=== PATIENT | male | born 1960 | race Caucasian/White ===

== ENCOUNTER 2022-05-12 16:54 | Inpatient (IN) | payer MEDICARE, OTHER ==
[~2022-05-12] VITALS: Ht 180.3 cm; Wt 100.7 kg
[2022-05-12 18:44] LABS: CALCIUM, SERUM 8.2 mg/dL (8.5-10.1); CARBON DIOXIDE 28 mmol/L (21-32); CHLORIDE 104 mmol/L (98-107); CREATININE 0.9 mg/dL (0.6-1.3); GLUCOSE 232 mg/dL (74-106); POTASSIUM 3.9 mmol/L (3.5-5.1); SODIUM SERUM 140 mmol/L (136-145); UREA NITROGEN, BLOOD 18 mg/dL (7-18)
[2022-05-12 18:51] LABS: BASOPHILS % (AUTO) 0.3 % (0.0-2.0); EOSINOPHILS % (AUTO) 5.4 % (0.0-6.0); HEMATOCRIT 30 % (39-51); HEMOGLOBIN 10.6 g/dL (13.5-17.5); LYMPHOCYTES # (AUTO) 1.5 K/uL (0.8-4.8); LYMPHOCYTES % (AUTO) 41.4 % (20.0-44.0); MEAN CORPUSCULAR HGB CONC 35 g/dl (31.0-36.0); MEAN CORPUSCULAR VOLUME 101 fL (80-96); MONOCYTES # (AUTO) 0.4 K/uL (0.1-1.30); MONOCYTES % (AUTO) 11.2 % (2.0-12.0); NEUTROPHILS # (AUTO) 1.6 K/uL (1.8-8.9); NEUTROPHILS % (AUTO) 41.7 % (43.0-81.0); PLATELET COUNT (AUTO) 90 K/uL (150-450); RED BLOOD CELL COUNT(AUTO) 2.97 MIL/uL (4.5-6.0); WHITE BLOOD COUNT (AUTO) 3.7 K/uL (4.3-11.0)
[2022-05-12 18:56] LABS: ALANINE AMINOTRANSFERASE 31 U/L (12-78); ALBUMIN 3.5 g/dL (3.4-5.0); ALKALINE PHOSPHATASE 95 U/L (46-116); ASPARTATE AMINOTRANSFERASE 27 U/L (15-37); BILIRUBIN,DIRECT 0.1 mg/dL (0.0-0.2); BILIRUBIN,TOTAL 0.3 mg/dL (0.2-1.0); TOTAL PROTEIN, SERUM 7.4 g/dL (6.4-8.2)
[2022-05-12] MEDS ORDERED: ASPIRIN 81 MG TAB.CHEW PO ONE (19:30)
[2022-05-12] MEDS ORDERED: ONDANSETRON HCL/PF 4 MG/2 ML VIAL IVP PRN (20:30)
[2022-05-12] MEDS ORDERED: MAG HYDROX/AL HYDROX/SIMETH 30 ML UDC PO PRN (20:30)
[2022-05-12] MEDS ORDERED: MAGNESIUM HYDROXIDE 30 ML UDC PO PRN (20:30)
[2022-05-12] MEDS ORDERED: Z GUARD REMEDY 4 OZ OINT TP PRN (20:30)
[2022-05-12] MEDS ORDERED: ZOLPIDEM TARTRATE 5 MG TABLET PO PRN (20:30)
[2022-05-13] MEDS ORDERED: *INSULIN REGULAR(HUMULIN R)HUM 100 UNIT/ML VIAL SQ PRN (01:00)
[2022-05-13] MEDS ORDERED: DEXTROSE 50%-WATER 50 ML DISP.SYRIN IV PRN (01:00)
[2022-05-13] MEDS ORDERED: ACETAMINOPHEN 325 MG TABLET ONE (02:49)
[2022-05-13] MEDS: ACETAMINOPHEN 325 MG TABLET PO PRN (02:51)
[2022-05-13] MEDS: BLOOD SUGAR DIAGNOSTIC 1 EACH STRIP VI SCH ×4 (07:30→21:22)
[2022-05-13] MEDS ORDERED: PANT40TA49 PO (07:33)
[2022-05-13] MEDS ORDERED: METO25TA20 PO (07:33)
[2022-05-13] MEDS ORDERED: ISOS30TA86 PO (07:33)
[2022-05-13] MEDS ORDERED: AMLO-212 PO (07:33)
[2022-05-13] MEDS ORDERED: DIVA-78 PO (07:33)
[2022-05-13] MEDS ORDERED: OLAN10TA3 PO (07:33)
[2022-05-13] MEDS ORDERED: PHEN100C12 PO (07:33)
[2022-05-13] MEDS ORDERED: LEVO50TA8 PO (07:33)
[2022-05-13] MEDS ORDERED: FENO145T21 PO (07:33)
[2022-05-13] MEDS ORDERED: ALOG25TA2 PO (07:34)
[2022-05-13] MEDS ORDERED: RIFA550T PO (07:34)
[2022-05-13 08:00] VITALS: BP 151/75
[2022-05-13] MEDS ORDERED: DOCU-141 PO (08:03)
[2022-05-13] MEDS ORDERED: INSU100V3 IJ (08:03)
[2022-05-13] MEDS ORDERED: MULT-439 PO (08:03)
[2022-05-13] MEDS ORDERED: NITR100C PO (08:03)
[2022-05-13] MEDS ORDERED: ASPI-1169 PO (08:03)
[2022-05-13] MEDS ORDERED: FOLI0.4T6 PO (08:03)
[2022-05-13] MEDS ORDERED: NUT.237L30 PO (08:03)
[2022-05-13] MEDS ORDERED: ASPIRIN 81 MG TAB.CHEW PO SCH (09:00)
[2022-05-13] MEDS: ASPIRIN 81 MG TAB.CHEW PO SCH (09:03)
[2022-05-13] MEDS: ISOSORBIDE MONONITRATE (30MG) 30 MG TAB.SR.24H PO SCH (09:04)
[2022-05-13] MEDS: ATORVASTATIN 40 MG TABLET PO SCH (09:04)
[2022-05-13] MEDS: DIVALPROEX SODIUM 500 MG TABLET.DR PO SCH ×2 (09:04→16:01)
[2022-05-13] MEDS: OLANZAPINE 10 MG TABLET PO SCH ×2 (09:04→16:01)
[2022-05-13] MEDS: LEVOTHYROXINE SODIUM 50 MCG TABLET PO SCH (09:06)
[2022-05-13 09:15] LABS: CALCIUM, SERUM 8.1 mg/dL (8.5-10.1); MAGNESIUM 1.7 mg/dL (1.8-2.4); PHOSPHORUS 3.1 mg/dL (2.5-4.9); POTASSIUM 3.7 mmol/L (3.5-5.1)
[2022-05-13 09:31] LABS: BASOPHILS % (AUTO) 0.6 % (0.0-2.0); EOSINOPHILS % (AUTO) 5.3 % (0.0-6.0); HEMATOCRIT 32 % (39-51); HEMOGLOBIN 11.3 g/dL (13.5-17.5); LYMPHOCYTES # (AUTO) 1.3 K/uL (0.8-4.8); LYMPHOCYTES % (AUTO) 37.6 % (20.0-44.0); MEAN CORPUSCULAR HGB CONC 35 g/dl (31.0-36.0); MEAN CORPUSCULAR VOLUME 104 fL (80-96); MONOCYTES # (AUTO) 0.4 K/uL (0.1-1.30); MONOCYTES % (AUTO) 11.1 % (2.0-12.0); NEUTROPHILS # (AUTO) 1.6 K/uL (1.8-8.9); NEUTROPHILS % (AUTO) 45.4 % (43.0-81.0); PLATELET COUNT (AUTO) 80 K/uL (150-450); RED BLOOD CELL COUNT(AUTO) 3.08 MIL/uL (4.5-6.0); WHITE BLOOD COUNT (AUTO) 3.6 K/uL (4.3-11.0)
[2022-05-13 12:00] VITALS: BP 138/76
[2022-05-13] MEDS ORDERED: IOHEXOL-350 100 ML VIAL IV ONE ×2 (12:19→12:21)
[2022-05-13] MEDS ORDERED: CT SWABBABLE VALVE TRANS SET 1 EA INFUS.SET MC ONE (12:21)
[2022-05-13] MEDS ORDERED: IV NS 0.9% 250 ML IV ONE (12:21)
[2022-05-13] MEDS ORDERED: METOPROLOL TARTRATE INJ 5 MG/5 ML AMPUL ONE (12:22)
[2022-05-13] MEDS: INSULIN REGULAR, HUMAN 100 UNIT/ML 3 ML VIAL SQ PRN ×2 (12:32→16:15)
[2022-05-13 16:00] VITALS: BP 146/79
[2022-05-13 20:00] VITALS: BP 148/80
[2022-05-13] MEDS ORDERED: diphenhydrAMINE HCL ELIX 25 MG/10 ML UDC PO PRN (20:30)
[2022-05-14] VITALS: BP 137/75
[2022-05-14 08:00] VITALS: BP 132/91
[2022-05-14] MEDS: ASPIRIN 81 MG TAB.CHEW PO SCH (09:00)
[2022-05-14] MEDS: DIVALPROEX SODIUM 500 MG TABLET.DR PO SCH ×2 (09:33→17:03)
[2022-05-14] MEDS: ISOSORBIDE MONONITRATE (30MG) 30 MG TAB.SR.24H PO SCH (09:33)
[2022-05-14] MEDS: OLANZAPINE 10 MG TABLET PO SCH ×2 (09:33→17:03)
[2022-05-14] MEDS: BLOOD SUGAR DIAGNOSTIC 1 EACH STRIP VI SCH ×4 (09:34→23:05)
[2022-05-14] MEDS: ATORVASTATIN 40 MG TABLET PO SCH (09:34)
[2022-05-14] MEDS: LEVOTHYROXINE SODIUM 50 MCG TABLET PO SCH (09:37)
[2022-05-14] MEDS: LOSARTAN POTASSIUM 50 MG TABLET PO SCH (09:38)
[2022-05-14] MEDS: INSULIN REGULAR, HUMAN 100 UNIT/ML 3 ML VIAL SQ PRN ×3 (09:39→17:05)
[2022-05-14 12:00] VITALS: BP 110/66
[2022-05-14] MEDS ORDERED: EMPA10TA PO (13:16)
[2022-05-14] MEDS ORDERED: ATOR40TA PO (13:16)
[2022-05-14] MEDS ORDERED: LOSA50TA39 PO (13:16)
[2022-05-14 16:00] VITALS: BP 99/58
[2022-05-14] MEDS: GLUCERNA SHAKE 237 ML CAN PO SCH (17:03)
[2022-05-14 20:00] VITALS: BP 115/66
[2022-05-14] MEDS: ACETAMINOPHEN 325 MG TABLET PO PRN (23:06)
[2022-05-15 04:00] VITALS: BP 113/70
[2022-05-15] MEDS: LEVOTHYROXINE SODIUM 50 MCG TABLET PO SCH (07:30)
[2022-05-15 08:00] VITALS: BP 124/60
[2022-05-15] MEDS: DIVALPROEX SODIUM 500 MG TABLET.DR PO SCH ×2 (09:00→09:26)
[2022-05-15] MEDS: OLANZAPINE 10 MG TABLET PO SCH ×2 (09:00→09:26)
[2022-05-15] MEDS: ATORVASTATIN 40 MG TABLET PO SCH (09:23)
[2022-05-15] MEDS: LOSARTAN POTASSIUM 50 MG TABLET PO SCH (09:24)
[2022-05-15] MEDS: ISOSORBIDE MONONITRATE (30MG) 30 MG TAB.SR.24H PO SCH (09:25)
[2022-05-15] MEDS: ASPIRIN 81 MG TAB.CHEW PO SCH (09:39)
[2022-05-15] MEDS: BLOOD SUGAR DIAGNOSTIC 1 EACH STRIP VI SCH ×3 (10:14→17:24)
[2022-05-15] MEDS: GLUCERNA SHAKE 237 ML CAN PO SCH ×2 (10:15→17:25)
[2022-05-15 16:00] VITALS: BP 126/65
== END 2022-05-15 18:39 | DRG 303 ==
LOC: ER 16:56 → TRANSITION 05-13 02:24 → TELE1 05-13 07:56 → MEDSG1 05-14 09:45
PROVIDERS: ADMIT Nurse Practitioner Acute Care; ATTEND Student in an Organized Health Care Education/Training Program
PROC: 05HB33Z Insertion of Infusion Device into Right Basilic Vein, Percutaneous Approach (ICD-10-PCS; principal; 2022-05-13)
DX: I25.10 Atherosclerotic heart disease of native coronary artery without angina pectoris (principal); D61.818 Other pancytopenia; G40.909 Epilepsy, unspecified, not intractable, without status epilepticus; F20.9 Schizophrenia, unspecified; E11.9 Type 2 diabetes mellitus without complications; Z91.011 Allergy to milk products; I10 Essential (primary) hypertension; Z95.5 Presence of coronary angioplasty implant and graft; E83.51 Hypocalcemia; D69.6 Thrombocytopenia, unspecified; E78.5 Hyperlipidemia, unspecified; F29 Unspecified psychosis not due to a substance or known physiological condition; F17.210 Nicotine dependence, cigarettes, uncomplicated; E66.9 Obesity, unspecified; Z68.30 Body mass index [BMI] 30.0-30.9, adult; Z79.4 Long term (current) use of insulin; Z79.82 Long term (current) use of aspirin; Z79.890 Hormone replacement therapy
CPT/HCPCS: 36410; 36415; 71045-TC; 80048-TC; 80061-TC; 80076-TC; 82962-TC; 83735-TC; 83880; 84100-TC; 84484-TC; 85025-TC; 87081-TC; 93307-TC; C9803; G0378; J1815; J3490; J7050; Q0163; Q9967